=== PATIENT | female | born 1985 | race Caucasian/White ===

== ENCOUNTER 2024-10-31 13:49 | Emergency (ER) | payer OTHER, SELFPAY ==
[2024-10-31 13:53] VITALS: BP 182/113
--- NOTE | 2024-10-31 17:20 | ED.GENMED ---
History of Present Illness
General
Chief Complaint: Chest Pain
Time Seen by Provider: 10/31/24 17:11
History of Present Illness
History of Present Illness:
39-year-old female presents the emergency department for evaluation of pleuritic chest pain and shortness of breath that began this morning. States it felt like her typical anxiety attack so she took alprazolam however this did not provide any
benefit. She has since developed nausea and generalized tremulousness which is not typical for her anxiety. She does report recent stressors related to work. No recent fevers or chills. No coughing. No calf swelling or leg cramping. No recent
immobilization or prolonged travel. Does take a estrogen-based oral contraceptive
Past History
Past History
ED Past Medical History: Other (Kidney stones); Negative Asthma, HTN, Hypercholesterolemia or NIDDM
ED Past Surgical History: Urological (Kidney stones with stent)
Social History
Tobacco: Non-smoker
Alcohol: Occasional
Personal: Single
Living: alone
Review of Systems
Review of Systems
Allergies reviewed?: Yes
All Other Systems: ROS reviewed and negative except as documented in HPI and ROS
Phy Exam
Physical Exam
Physical Exam:
GEN: Well appearing, NAD, WDWN
HEENT: Oral mucosa moist, no scleral icterus
Cardiac: Regular rate and rhythm, no murmurs
Lung: No respiratory distress, no tachypnea, lungs clear to auscultation
MSK: No gross deformity or injuries
Skin: Good color, no pallor or jaundice, no rashes
Neuro: AO x3, moves all extremities freely
Psych: Calm, cooperative
Scores
Heart Score for Chest Pain Patients
STEMI patient?: Not applicable
Course
Orders/Labs/Results
Orders:
Orders
10/31/24
Electrocardiogram (*1) Stat
Reason for Study: Chest Pain
Comment: DONE
10/31/24 17:17
Complete Blood Count/With Diff Urgent
Comprehensive Metabolic Panel Urgent
D-Dimer Urgent
Troponin I Urgent
10/31/24 17:37
Test Result ONCE
10/31/24 17:39
Urinalysis Reflex To Culture Urgent
Date Specimen was Collected: 10/31/24
Time Specimen was Collected: 17:37
Urine Microscopic Reflex Cult Urgent
Urine,Hcg qualitative screen [HCG, Urine Qualitative Screen] Urgent
Date Specimen was Collected: 10/31/24
Time Specimen was Collected: 17:37
10/31/24 18:53
Ondansetron Injectable [Zofran] 4 mg IV NOW STA
10/31/24 19:56
Ondansetron Injectable [Zofran] 4 mg IV NOW STA
10/31/24 20:24
CT Pe/abd/pel W Urgent
Comment:
Reason For Exam: chest pain, abd pain, back pain, elev dimer
Ketorolac [Toradol] 15 mg IV NOW STA
10/31/24 22:09
Lorazepam [Ativan] 1 mg IV NOW STA
Abnormal Lab Results
10/31/24 10/31/24
17:17 17:39
Absolute Neuts (auto) 8.1 H 10^3/uL
(1.4-6.5)
Absolute Lymphs (auto) 0.8 L 10^3/uL
(1.2-3.4)
Neutrophils % 86.8 H %
(42.2-75.2)
Lymphocytes % 8.3 L %
(20.5-51.1)
D-Dimer 0.56 H ug/mlFEU
(0.00-0.50)
Glucose 102 H mg/dl
(70-99)
Urine Ketones 3+ A
(Negative)
Ur Occult Blood Reflex 3+ A
(Negative)
Urine RBC 3-6 A /HPF
(0-2)
Urine Bacteria (Reflex) Few A
(Negative)
10/31/24 17:17
10/31/24 17:17
Vital Signs
Initial and Last Documented VS:
Initial Vital Signs
Temp Pulse Resp BP Pulse Ox
98.2 F 109 16 182/113 100
10/31/24 13:53 10/31/24 13:53 10/31/24 13:53 10/31/24 13:53 10/31/24 13:53
Last Documented Vital Signs
Temp Pulse Resp BP Pulse Ox
98.2 F 93 23 158/99 99
10/31/24 13:53 10/31/24 23:00 10/31/24 23:00 10/31/24 23:00 10/31/24 20:30
MDM/Problems Addressed
MDM/Problems Addressed:
Patient has a broad litany of symptoms including chest pain, back pain, difficulty breathing, sweating, and tremulousness. She also has repeated episodes of nausea and vomiting in the ED. Broad workup was obtained evaluating for potential cardiac,
pulmonary, and intra-abdominal causes showing no acute pathology. A CT angiogram of the chest was obtained on the basis of the patient's elevated D-dimer and her use of estrogen however this showed no evidence for PE. She was ultimately given a
dose of IV lorazepam with improvement in symptoms suggesting a psychosomatic component. Recommend outpatient primary care follow-up
Comment
Comment:
EKG was independently reviewed by myself, interpretation is normal sinus rhythm with no ischemic ST changes
*Critical Care Note
Total Time (30-74mins, 75-104mins- exclusive of procedures): Not Applicable
ED Attending Note
-
Portions of this chart may have been created with voice recognition software.� Occasional wrong word or��sound alike� substitutions may have occurred due to the inherent limitations of voice recognition software.
Discharge Plan
Departure
Patient Disposition: Home (Routine Discharge)
Date of Disposition: 10/31/24
Time of Disposition: 23:06
Patient with high blood pressure during this ER visit?: No
Discharge Problem:
Atypical chest pain
Instructions: Chest Pain That Is Not Caused by the Heart (DC)
Prescriptions:
No Action
pantoprazole 40 MG tablet,delayed release (DR/EC)
40 mg PO DAILY Qty: 10 0RF
Referrals:
Perla Couch CRNP [Family Provider, Family Practice]
Interventions
Interventions:
*Risk Screen - Suicide Last Done: 10/31/24 13:53
*General Assessment Last Done: 10/31/24 13:53
*Neglect/Abuse Screening Last Done: 10/31/24 13:53
*ED- Fall Risk Assessment Last Done: 10/31/24 13:53
*ED COVID-19 Vaccine History Last Done: 10/31/24 13:53
*Nursing Disposition Last Done: 10/31/24 23:21
ED- Cardiac Assessment Last Done: 10/31/24 18:08
Discharge Date and Time
Discharge Date/Time: 10/31/24 23:22
Print Language: AZERI
[2024-10-31] MEDS: ZOFRAN 4 MG IV ×2 (17:30→20:01)
[2024-10-31 17:41] VITALS: BP 154/89
[2024-10-31 17:49] LABS: Urine Albumin Negative (Neg - Trace); Urine Bilirubin Negative (Negative); Urine Character Clear (Clear); Urine Color Yellow; Urine Glucose Negative (Negative); Urine Ketone 3+ (Negative); Urine Leukocyte Negative (Negative); Urine Nitrite Negative (Negative); Urine Occult Blood 3+ (Negative); Urine Urobilinogen Negative (Neg - 1+); Urine pH 6.5 (5.0-9.0)
[2024-10-31 17:50] LABS: HCG, Urine Qualitative Screen Negative
[2024-10-31 17:51] LABS: D-Dimer 0.56 ug/mlFEU (0.00-0.50)
[2024-10-31 17:52] LABS: ALT (SGPT) 17 U/L (0-35); AST (SGOT) 19 U/L (14-36); Albumin 4.4 g/dl (3.5-5.0); Alkaline Phosphatase 69 U/L (38-126); Blood Urea Nitrogen 10 mg/dl (7-17); Calcium 8.7 mg/dl (8.4-10.2); Carbon Dioxide 22 mmol/L (22-30); Chloride 105 mmol/L (98-107); Glucose 102 mg/dl (70-99); Potassium 4.4 mmol/L (3.5-5.1); Sodium 136 mmol/L (135-145); Total Bilirubin 0.9 mg/dl (0.2-1.3); Total Protein 7.7 g/dl (6.3-8.2); eGFR > 60.00
--- NOTE | 2024-10-31 17:53 | DOWNTIME ---
There was a [employer] Downtime on 10/31/2024 from 1230 to 10/31/2024 at 1550. Downtime documentation of patient's care, including medication administrations, has been reconciled in the electronic record per guidelines. Refer to the
patient's paper chart under the miscellaneous tab to see printed paper medication records and downtime forms.
[2024-10-31 17:55] LABS: Urine Bacteria Few (Negative); Urine White Cell 0-2 /HPF (0-5)
[2024-10-31 18:00] VITALS: BP 159/98
[2024-10-31 18:01] LABS: Troponin I < 0.012 ng/ml
[2024-10-31 18:04] LABS: % Basophils 0.1 % (0-2); % Eosinophils 0.2 % (0-6); % Immature Granulocytes 0.2 % (0-0.5); % Lymphocytes 8.3 % (20.5-51.1); % Monocytes 4.4 % (1.7-9.3); % Neutrophils 86.8 % (42.2-75.2); Absolute Lymphocytes 0.8 10^3/uL (1.2-3.4); Absolute Monocytes 0.4 10^3/uL (0.1-0.6); Absolute Neutrophils 8.1 10^3/uL (1.4-6.5); Hematocrit 41.8 % (37.0-47.0); Hemoglobin 14.2 g/dL (12.0-16.0); Mean Corpuscular Hgb 29.5 pg (27.0-31.0); Mean Corpuscular Volume 86.9 fL (81.0-99.0); Mean Platelet Volume 9.5 fL (7.4-10.4); Nucleated Red Blood Cells % 0 %; Platelet Count 260 10^3/uL (130-400); Red Blood Cell Count 4.81 10^6/uL (4.20-5.40); Red Cell Dist. Width 12.5 % (11.5-14.5); White Blood Cell Count 9.4 10^3/uL (4.8-10.8)
[2024-10-31 20:04] VITALS: BP 152/94
[2024-10-31] MEDS: TORADOL 15 MG IV (21:06)
[2024-10-31] MEDS: ATIVAN 1 MG IV (22:25)
[2024-10-31 22:27] VITALS: BP 142/85
[2024-10-31 23:00] VITALS: BP 158/99
== END 2024-10-31 23:22 | disposition home or self-care (01) ==
LOC: EMR 13:49
PROVIDERS: Physician Assistant; EMERGENCY PHYSICIAN Emergency Medicine; FAMILY PHYSICIAN Nurse Practitioner
DX: R07.89 Other chest pain (principal)
CPT/HCPCS: 99285; 96374; 96375 ×2; 96376; 71275; 74177; 80053; 81003; 81015; 81025; 84484; 85025; 85379; 93005; Q9967